=== PATIENT | female | born 1945 | race Caucasian/White ===

== ENCOUNTER 2016-12-03 19:30 | Emergency (ER) | payer MEDICARE, OTHER ==
[~2016-12-03] VITALS: Ht 157.5 cm; Wt 66.3 kg
[2016-12-03 19:57] VITALS: BP 136/88
[2016-12-03] MEDS ORDERED: NAPROXEN 500 MG TABLET PO ONE (20:30)
== END 2016-12-03 20:46 | disposition home or self-care (01) ==
LOC: ED 20:26
DX: M70.41 Prepatellar bursitis, right knee (principal); Y93.89 Activity, other specified
CPT/HCPCS: 99283